=== PATIENT | male | born 1975 | race African-American/Black ===

== ENCOUNTER 2017-05-22 21:46 | Inpatient (IN) | payer MEDICARE, MEDICAID ==
[~2017-05-22] VITALS: Ht 182.9 cm; Wt 82.9 kg
[~2017-05-22 21:46] MED LIST: CALC.25 PO; ELIP667T PO; HYDR-2768 PO
[2017-05-22] MEDS ORDERED: SODIUM CHLORIDE 0.9% FLUSH 10 ML FLUSH IV FLUSH PRN (22:00)
[2017-05-22] MEDS ORDERED: ONDANSETRON HCL 4 MG/2 ML VIAL IVP ONE (22:00)
[2017-05-22] MEDS: SODIUM CHLOR 0.9% 1000 ML INJ 1,000 ML IV SCH ×2 (22:02→22:08)
[2017-05-22 22:08] VITALS: BP 123/87; PULSE 78; RESP 18; TEMP 97.8; O2SAT 97
[2017-05-22 22:11] VITALS: BP 138/78; PULSE 86; RESP 18; O2SAT 98
--- NOTE | 2017-05-22 22:12 | PD ---
HPI Chief Complaint: Medical Clearance Time Seen by Provider: 21:54 Travel History International Travel<30 days: No Contact w/Intl Traveler<30days: No History of Present Illness HPI Patient is a 42-year-old male that presented to the emergency department via EMS for evaluation after being found in the road passed out. Patient states that he was "turned up" tonight for his birthday. He reports drinking alcohol and smoking marijuana since 5 PM, specifically patient has been taking Fleischmanns vodka. Patient appears intoxicated, history is obtained from civil transportation engineer. Patient does not have any complaints at this time. He is actively vomiting in the emergency department. He denies abdominal pain, chest pain, fevers, headache, head injury. Again patient is a poor historian at this time due to acute intoxication. [facility] Past Medical History Diminished Hearing: No Hypertension: Yes Medical other: Yes (Hypocalcemia) Seizures: Yes (LAST ONE CHILDHOOD) Thyroid Disease: Yes ("DOESN'T WORK RIGHT") Past Surgical History Surgical History: No Previous Surgery Social History Alcohol Use: Yes Tobacco Use: Yes (1/2PPD) Substance Use: No Allergies-Medications (Allergen,Severity, Reaction): Coded Allergies: No Known Allergies (Verified , 06/22/09) Reported Meds & Prescriptions Reported Meds & Active Scripts Active Reported Hctz (Hydrochlorothiazide) 25 Mg Tab 25 Mg PO Q6 Phoslo (Calcium Acetate) 667 Mg Cap 667 Mg PO TIDAC Rocaltrol (Calcitriol) 0.25 Mcg Cap 0.25 Mcg PO TID Review of Systems ROS Limitations: Intoxication Except as stated in HPI: all other systems reviewed are Neg Gastrointestinal: Positive: Vomiting Psychiatric: Positive: Substance Abuse Physical Exam Narrative GENERAL: Well-developed, well-nourished, intoxicated appearing -Bul[place]ian male. SKIN: Warm and dry. HEAD: Atraumatic. Normocephalic. EYES: Pupils equal and round. No scleral icterus. Moderate injection, no drainage. ENT: No nasal bleeding or discharge. Mucous membranes pink and moist. NECK: Trachea midline. No JVD. CARDIOVASCULAR: Regular rate and rhythm. RESPIRATORY: No accessory muscle use. Clear to auscultation. Breath sounds equal bilaterally. GASTROINTESTINAL: Abdomen soft, non-tender, nondistended. Hepatic and splenic margins not palpable. MUSCULOSKELETAL: Extremities without clubbing, cyanosis, or edema. No obvious deformities. NEUROLOGICAL: Awake and drowsy but arousable, oriented to self, place and date. No obvious cranial nerve deficits. Motor grossly within normal limits. Five out of 5 muscle strength in the arms and legs. Garbled speech. PSYCHIATRIC: Appropriate mood and affect; insight and judgment normal. Data Data Last Documented VS Vital Signs Date Time Temp Pulse Resp B/P (MAP) Pulse Ox O2 Delivery O2 Flow Rate FiO2 05/22/17 22:08 97.8 78 18 123/87 (99) 97 Room Air Orders Orders Complete Blood Count With Diff (05/22/17 21:54) Comprehensive Metabolic Panel (05/22/17 21:54) Lipase (05/22/17 21:54) Iv Access Insert/Monitor (05/22/17 21:54) Ecg Monitoring (05/22/17 21:54) Oximetry (05/22/17 21:54) Ondansetron Inj (Zofran Inj) (05/22/17 22:00) Sodium Chlor 0.9% 1000 Ml Inj (Ns 1000 M (05/22/17 21:54) Sodium Chloride 0.9% Flush (Ns Flush) (05/22/17 22:00) Alcohol (Ethanol) (05/22/17 21:54) Prochlorperazine Inj (Compazine Inj) (05/22/17 23:15) Chest, Single Ap (05/22/17 ) Ct Brain W/O Iv Contrast(Rout) (05/22/17 ) Potassium Chlor 20 Meq Premix (Kcl 20 Me (05/22/17 23:45) Calcium Gluconate Inj (Calcium Gluconate (05/22/17 23:45) Urinalysis - C+S If Indicated (05/22/17 23:36) Urinary Catheter Insert/Apply (05/22/17 23:36) Potassium Chlor 20 Meq Premix (Kcl 20 Me (05/22/17 23:45) Ammonia Aromatic Inhalant (Aromatic Ammo (05/22/17 23:38) Labs Laboratory Tests Test 05/22/17 22:15 White Blood Count 10.9 TH/MM3 Red Blood Count 4.71 MIL/MM3 Hemoglobin 13.5 GM/DL Hematocrit 41.0 % Mean Corpuscular Volume 87.0 FL Mean Corpuscular Hemoglobin 28.6 PG Mean Corpuscular Hemoglobin Concent 32.9 % Red Cell Distribution Width 15.6 % Platelet Count 330 TH/MM3 Mean Platelet Volume 8.1 FL Neutrophils (%) (Auto) 62.9 % Lymphocytes (%) (Auto) 32.7 % Monocytes (%) (Auto) 3.7 % Eosinophils (%) (Auto) 0.1 % Basophils (%) (Auto) 0.6 % Neutrophils # (Auto) 6.9 TH/MM3 Lymphocytes # (Auto) 3.6 TH/MM3 Monocytes # (Auto) 0.4 TH/MM3 Eosinophils # (Auto) 0.0 TH/MM3 Basophils # (Auto) 0.1 TH/MM3 CBC Comment DIFF FINAL Differential Comment Blood Urea Nitrogen 13 MG/DL Creatinine 1.46 MG/DL Random Glucose 118 MG/DL Total Protein 7.8 GM/DL Albumin 4.0 GM/DL Calcium Level 6.4 MG/DL Alkaline Phosphatase 60 U/L Aspartate Amino Transf (AST/SGOT) 21 U/L Alanine Aminotransferase (ALT/SGPT) 24 U/L Total Bilirubin 0.2 MG/DL Sodium Level 135 MEQ/L Potassium Level 2.9 MEQ/L Chloride Level 98 MEQ/L Carbon Dioxide Level 25.3 MEQ/L Anion Gap 12 MEQ/L Estimat Glomerular Filtration Rate 64 ML/MIN Protein Corrected Calcium 6.2 MG/DL Lipase 122 U/L Ethyl Alcohol Level 301 MG/DL MDM Medical Decision Making Medical Screen Exam Complete: Yes Emergency Medical Condition: Yes Interpretation(s) Laboratory Tests Test 05/22/17 22:15 White Blood Count 10.9 TH/MM3 Red Blood Count 4.71 MIL/MM3 Hemoglobin 13.5 GM/DL Hematocrit 41.0 % Mean Corpuscular Volume 87.0 FL Mean Corpuscular Hemoglobin 28.6 PG Mean Corpuscular Hemoglobin Concent 32.9 % Red Cell Distribution Width 15.6 % Platelet Count 330 TH/MM3 Mean Platelet Volume 8.1 FL Neutrophils (%) (Auto) 62.9 % Lymphocytes (%) (Auto) 32.7 % Monocytes (%) (Auto) 3.7 % Eosinophils (%) (Auto) 0.1 % Basophils (%) (Auto) 0.6 % Neutrophils # (Auto) 6.9 TH/MM3 Lymphocytes # (Auto) 3.6 TH/MM3 Monocytes # (Auto) 0.4 TH/MM3 Eosinophils # (Auto) 0.0 TH/MM3 Basophils # (Auto) 0.1 TH/MM3 CBC Comment DIFF FINAL Differential Comment Blood Urea Nitrogen 13 MG/DL Creatinine 1.46 MG/DL Random Glucose 118 MG/DL Total Protein 7.8 GM/DL Albumin 4.0 GM/DL Calcium Level 6.4 MG/DL Alkaline Phosphatase 60 U/L Aspartate Amino Transf (AST/SGOT) 21 U/L Alanine Aminotransferase (ALT/SGPT) 24 U/L Total Bilirubin 0.2 MG/DL Sodium Level 135 MEQ/L Potassium Level 2.9 MEQ/L Chloride Level 98 MEQ/L Carbon Dioxide Level 25.3 MEQ/L Anion Gap 12 MEQ/L Estimat Glomerular Filtration Rate 64 ML/MIN Protein Corrected Calcium 6.2 MG/DL Lipase 122 U/L Ethyl Alcohol Level 301 MG/DL Vital Signs Date Time Temp Pulse Resp B/P (MAP) Pulse Ox O2 Delivery O2 Flow Rate FiO2 05/22/17 22:08 97.8 78 18 123/87 (99) 97 Room Air Differential Diagnosis Intoxication versus metabolic abnormality versus substance abuse versus other Narrative Course Patient is a 42-year-old male that presented to emergency department after being found in a road, intoxicated. Patient is alert, appears intoxicated. He was vomiting on arrival. Labs ordered and pending, IV fluids, Zofran ordered. IV access established, patient placed on machine egg washer and continuous pulse oximetry. Patient's vital signs are stable. CBC is unremarkable, chemistry with a potassium of 2.9 and corrected calcium of 6.2. Replacement ordered. Patient was reassessed, his oxygen saturation was noted to be in the upper 60s. He was placed on a nonrebreather at 15 L. He was then evaluated by my attending physician as well, patient is no longer arousable or responsive. Care of patient transferred to Dr. Viveros at this time. Chelsea Carrillo May 22, 2017 22:12
[2017-05-22 22:22] LABS: AUTOMATED NEUTROPHIL # 6.9 TH/MM3 (1.8-7.7); BASOPHIL # 0.1 TH/MM3 (0-0.2); BASOPHIL % 0.6 % (0.0-2.0); EOSINOPHIL % 0.1 % (0.0-4.0); HEMOGLOBIN 13.5 GM/DL (13.0-17.0); LYMPH % 32.7 % (9.0-44.0); LYMPHOCYTE # 3.6 TH/MM3 (1.0-4.8); MEAN CORPUSCULAR HEMOGLOBIN 28.6 PG (27.0-34.0); MEAN CORPUSCULAR HGB CONC 32.9 % (32.0-36.0); MEAN PLATELET VOLUME 8.1 FL (7.0-11.0); MONO % 3.7 % (0.0-8.0); MONOCYTE # 0.4 TH/MM3 (0-0.9); NEUT % 62.9 % (16.0-70.0); PLATELET COUNT 330 TH/MM3 (150-450); RED BLOOD COUNT 4.71 MIL/MM3 (4.50-5.90); RED CELL DISTRIBUTION WIDTH 15.6 % (11.6-17.2); WHITE BLOOD COUNT 10.9 TH/MM3 (4.0-11.0)
[2017-05-22 22:50] LABS: BICARBONATE 25.3 MEQ/L (21.0-32.0); CALCIUM 6.4 MG/DL (8.5-10.1); CREATININE 1.46 MG/DL (0.60-1.30); TOTAL BILIRUBIN ADULT 0.2 MG/DL (0.2-1.0); TOTAL PROTEIN 7.8 GM/DL (6.4-8.2)
[2017-05-22 23:00] LABS: CALCIUM-PROTEIN CORRECTED 6.2 MG/DL (8.5-10.1)
[2017-05-22] MEDS ORDERED: PROCHLORPERAZINE INJ 10 MG/2 ML VIAL IV PUSH ONE (23:15)
--- NOTE | 2017-05-22 23:26 | RADRPT ---
EXAM DATE/TIME: 05/22/2017 23:15 [facility] COMPARISON: No previous studies available for comparison. INDICATIONS : Vomiting. Congestion. MEDICAL HISTORY : Unobtainable. SURGICAL HISTORY : Unobtainable. ENCOUNTER: Initial ACUITY: 1 day PAIN SCORE: Non-responsive. LOCATION: Bilateral chest FINDINGS: Portable AP view of the chest demonstrates cardiac silhouette size at the upper limits for normal. Laurence ngs are underinflated. No definite effusion, consolidation, or pneumothorax is appreciated for techni que. The bones and soft tissues demonstrate no acute finding. CONCLUSION: Cardiac silhouette size at the upper limits for normal. Otherwise, no acute finding is identified. Stanislav Hill MD on May 22, 2017 at 23:24 Board Certified Radiologist. This report was verified electronically.
[2017-05-22] MEDS ORDERED: AMMONIA AROMATIC INHALANT 0.33 ML ONE (23:38)
[2017-05-22] MEDS ORDERED: POTASSIUM CHLOR 20 MEQ PREMIX 100 ML IV SCH ×2 (23:45)
[2017-05-22] MEDS ORDERED: CALCIUM GLUCONATE INJ 1 GM in DEXTROSE 5% IN WATER 100ML INJ 100 ML IV ONE ×2 (23:45)
--- NOTE | 2017-05-22 23:57 | HHI.HP ---
HPI Service Critical Care Medicine Primary Care Physician Unknown Admission Diagnosis Diagnosis: Travel History International Travel<30 Days: No Contact w/Intl Traveler <30 Da: No Traveled to Known Affected Are: No History of Present Illness 42-year-old gentleman arrives by ambulance for alcohol and other substances intoxication. Today's the patient's birthday and he admits to drinking alcohol and smoking marijuana. Upon arrival the patient was uncontrollably vomiting which resolved with Zofran. He was initially conversive, however about an hour after arrival the patient became more and more obtunded. His labs are remarkable for an alcohol level of 300, potassium 2.9, calcium 6.8. Patient was taken to CT scan for CT of his head which shows diffuse calcifications, no acute intracranial abnormality. Chest x-ray shows cardiomegaly without acute abnormality. Patient's respirations became labored, sonorous, and the patient became less and less responsive to painful stimuli. His O2 saturation was also in the high 80s on room air, improved to 100% on 100% nonrebreather however patient wasn't able to protect his airways and was intubated by ED attending. Review of Systems ROS Unobtainable patient is sedated and intubated Past Family Social History Allergies: Coded Allergies: No Known Allergies (Verified , 06/22/09) Past Medical History Hypertension Past Surgical History Unable to obtain Reported Medications Reported Meds & Active Scripts Active Reported Hctz (Hydrochlorothiazide) 25 Mg Tab 25 Mg PO Q6 Phoslo (Calcium Acetate) 667 Mg Cap 667 Mg PO TIDAC Rocaltrol (Calcitriol) 0.25 Mcg Cap 0.25 Mcg PO TID Active Ordered Medications Current Medications Medications (Trade) Dose Ordered Sig/Swapna Route PRN Reason Start Time Stop Time Status Last Admin Dose Admin Sodium Chloride (NS Flush) 2 ml UNSCH PRN IV FLUSH FLUSH AFTER USING IV ACCESS 05/22/17 22:00 Potassium Chloride 100 ml @ 50 mls/hr Q2H IV 05/22/17 23:45 05/23/17 03:44 Potassium Chloride 100 ml @ 50 mls/hr Q2H IV 05/22/17 23:45 05/23/17 03:44 Potassium Chloride 100 ml @ 50 mls/hr Q2H PRN IV For Potassium 2.8 - 3.2 mEq/L 2/8/18 00:30 Potassium Chloride 100 ml @ 50 mls/hr Q2H PRN IV For Potassium 2.8 - 3.2 mEq/L 05/23/17 00:30 Potassium Bicarb/ Potassium Chloride (K-Lyte Cl Eff) 50 meq UNSCH PRN PO For Potassium 3.3 - 3.5 mEq/L 05/23/17 00:30 Potassium Chloride 100 ml @ 25 mls/hr UNSCH PRN IV For Potassium 3.3 - 3.5 mEq/L 05/23/17 00:30 Potassium Chloride 100 ml @ 50 mls/hr Q2H PRN IV For Potassium 3.3 - 3.5 mEq/L 05/23/17 00:30 Magnesium Sulfate 4 gm/Sodium Chloride 100 ml @ 50 mls/hr UNSCH PRN IV For Magnesium 0.9 - 1.1 mg/dL 05/23/17 00:30 Magnesium Oxide (Mag-Ox) 800 mg UNSCH PRN PO For Magnesium 1.2 - 1.6 mg/dL 05/23/17 00:30 Magnesium Sulfate 2 gm/Sodium Chloride 100 ml @ 50 mls/hr UNSCH PRN IV For Magnesium 1.2 - 1.6 mg/dL 05/23/17 00:30 Potassium Phosphate (K-Phos) 2,000 mg Q4H PRN PO For Phosphorus < 2.5 mg/dL 05/23/17 00:30 Sodium Phosphate 30 mmol/Sodium Chloride 250 ml @ 42 mls/hr UNSCH PRN IV For Phosphorus < 2.5 mg/dL 05/23/17 00:30 Potassium Phosphate (K-Phos) 2,000 mg UNSCH PRN PO/TUBE SEE LABEL COMMENTS 05/23/17 00:30 Potassium Phosphate 30 mmol/ Sodium Chloride 260 ml @ 42 mls/hr UNSCH PRN IV SEE LABEL COMMENTS 05/23/17 00:30 Sodium Chloride 1,000 ml @ 164 mls/hr Q6H6M IV 05/23/17 00:30 Sodium Chloride (NS Flush) 2 ml UNSCH PRN IV FLUSH FLUSH AFTER USING IV ACCESS 05/23/17 00:30 Sodium Chloride (NS Flush) 2 ml BID IV FLUSH 05/23/17 09:00 Acetaminophen (Tylenol) 650 mg Q6H PRN PO PAIN 1-10 AND/OR FEVER >101F 05/23/17 00:30 Famotidine (Pepcid Inj) 20 mg Q12HR IV PUSH 05/23/17 09:00 Midazolam HCl (Versed Inj) 2 mg Q1H PRN IV PUSH SEDATION 05/23/17 00:30 Artificial Tears (Tears Naturale Opth Soln) 1 drop TID EACH EYE 05/23/17 09:00 Ondansetron HCl (Zofran Inj) 4 mg Q6H PRN IV PUSH NAUSEA OR VOMITING 05/23/17 00:30 Albuterol/ Ipratropium (Duoneb Neb) 1 ampule Q6HR NEB INH 05/23/17 04:00 Albuterol/ Ipratropium (Duoneb Neb) 1 ampule Q2HR NEB PRN INH WHEEZING 05/23/17 00:30 Enoxaparin Sodium (Lovenox Inj) 40 mg Q24H SQ 05/23/17 09:00 Miscellaneous Information 1 Q361D XX 05/23/17 00:30 Chlorhexidine Gluconate (Chlorhexidine 2% Cloth) 3 pack Taper DAILY@04 TOP 05/23/17 04:00 05/19/18 03:59 Chlorhexidine Gluconate (Chlorhexidine 2% Cloth) 3 pack UNSCH PRN TOP HYGIENIC CARE 05/23/17 00:30 Senna/Docusate Sodium (Leeann-Colace) 1 tab BID PO 05/23/17 09:00 Magnesium Hydroxide (Milk Of Magnesia Liq) 30 ml Q12H PRN PO Mild constipation 05/23/17 00:30 Sennosides (Senokot) 17.2 mg Q12H PRN PO Moderate constipation 05/23/17 00:30 Bisacodyl (Dulcolax Supp) 10 mg DAILY PRN RECTAL SEVERE CONSITIPATION 05/23/17 00:30 Lactulose (Lactulose Liq) 30 ml DAILY PRN PO SEVERE CONSITIPATION 05/23/17 00:30 Chlorhexidine Gluconate (Peridex 0.12% Liq) 15 ml BID@08,20 MT 05/23/17 08:00 Propofol 100 ml @ 0 mls/hr TITRATE PRN IV SEDATION 05/23/17 00:30 UNV Multivitamins 10 ml/Thiamine HCl 100 mg/Folic Acid 1 mg/Sodium Chloride 511.2 ml @ 125 mls/hr ONCE ONCE IV 05/23/17 02:45 05/23/17 06:50 Propofol 100 ml @ 0 mls/hr TITRATE PRN IV SEDATION 05/23/17 01:15 05/23/17 01:31 Family History Unable to obtain Social History Unable to obtain Physical Exam Vital Signs Vital Signs Date Time Temp Pulse Resp B/P (MAP) Pulse Ox O2 Delivery O2 Flow Rate FiO2 05/22/17 22:08 97.8 78 18 123/87 (99) 97 Room Air Physical Exam GENERAL: Well-nourished, well-developed patient. Sedated and intubated SKIN: Warm and dry. HEAD: Normocephalic. EYES: No scleral icterus. No injection or drainage. NECK: Supple, trachea midline. No JVD or lymphadenopathy. CARDIOVASCULAR: Regular rate and rhythm without murmurs, gallops, or rubs. RESPIRATORY: Breath sounds equal bilaterally. No accessory muscle use. GASTROINTESTINAL: Abdomen soft, non-tender, nondistended. MUSCULOSKELETAL: No cyanosis, or edema. BACK: Nontender without obvious deformity. NEURO EXAM: GCS: 7 Mental Status: The patient is altered, sedated and intubated, moves all 4 extremities spontaneously and localizes the pain. Laboratory Laboratory Tests Test 05/22/17 22:15 White Blood Count 10.9 Red Blood Count 4.71 Hemoglobin 13.5 Hematocrit 41.0 Mean Corpuscular Volume 87.0 Mean Corpuscular Hemoglobin 28.6 Mean Corpuscular Hemoglobin Concent 32.9 Red Cell Distribution Width 15.6 Platelet Count 330 Mean Platelet Volume 8.1 Neutrophils (%) (Auto) 62.9 Lymphocytes (%) (Auto) 32.7 Monocytes (%) (Auto) 3.7 Eosinophils (%) (Auto) 0.1 Basophils (%) (Auto) 0.6 Neutrophils # (Auto) 6.9 Lymphocytes # (Auto) 3.6 Monocytes # (Auto) 0.4 Eosinophils # (Auto) 0.0 Basophils # (Auto) 0.1 CBC Comment DIFF FINAL Differential Comment Blood Urea Nitrogen 13 Creatinine 1.46 Random Glucose 118 Total Protein 7.8 Albumin 4.0 Calcium Level 6.4 Alkaline Phosphatase 60 Aspartate Amino Transf (AST/SGOT) 21 Alanine Aminotransferase (ALT/SGPT) 24 Total Bilirubin 0.2 Sodium Level 135 Potassium Level 2.9 Chloride Level 98 Carbon Dioxide Level 25.3 Anion Gap 12 Estimat Glomerular Filtration Rate 64 Protein Corrected Calcium 6.2 Lipase 122 Ethyl Alcohol Level 301 Result Diagram: 05/22/17221405/22/172214 Caprini VTE Risk Assessment Caprini VTE Risk Assessment: Mod/High Risk (score >= 2) Caprini Risk Assessment Model Point Value = 1 Point Value = 2 Point Value = 3 Point Value = 5 Age 41-60 Minor surgery BMI > 25 kg/m2 Swollen legs Varicose veins or History of unexplained or recurrent spontaneous Oral contraceptives or hormone replacement Sepsis (< 1 month) Serious lung disease, including pneumonia (< 1 month) Abnormal pulmonary function Acute myocardial infarction Congestive heart failure (< 1 month) History of inflammatory bowel disease Medical patient at bed rest Age 61-74 Arthroscopic surgery Major open surgery (> 45 min) Laparoscopic surgery (> 45 min) Malignancy Confined to bed (> 72 hours) Immobilizing plaster cast Central venous access Age >= 75 History of VTE Family history of VTE Factor V Leiden Prothrombin [id number] Lupus anticoagulant Anticardiolipin antibodies Elevated serum homocysteine Heparin-induced thrombocytopenia Other congenital or acquired thrombophilia Stroke (< 1 month) Elective arthroplasty Hip, pelvis, or leg fracture Acute spinal cord injury (< 1 month) Prophylaxis Regimen Total Risk Factor Score Risk Level Prophylaxis Regimen 0-1 Low Early ambulation 2 Moderate Order ONE of the following: *Sequential Compression Device (SCD) *Heparin 5000 units SQ BID 3-4 Higher Order ONE of the following medications: *Heparin 5000 units SQ TID *Enoxaparin/Lovenox 40 mg SQ daily (WT < 150 kg, CrCl > 30 mL/min) *Enoxaparin/Lovenox 30 mg SQ daily (WT < 150 kg, CrCl > 10-29 mL/min) *Enoxaparin/Lovenox 30 mg SQ BID (WT < 150 kg, CrCl > 30 mL/min) AND/OR *Sequential Compression Device (SCD) 5 or more Highest Order ONE of the following medications: *Heparin 5000 units SQ TID (Preferred with Epidurals) *Enoxaparin/Lovenox 40 mg SQ daily (WT < 150 kg, CrCl > 30 mL/min) *Enoxaparin/Lovenox 30 mg SQ daily (WT < 150 kg, CrCl > 10-29 mL/min) *Enoxaparin/Lovenox 30 mg SQ BID (WT < 150 kg, CrCl > 30 mL/min) AND *Sequential Compression Device (SCD) Assessment and Plan Assessment and Plan Respiratory failure - Intubated for airway protection - Wean when neurologically improved - CXR and ABG daily Encephalopathy - Intoxication - Supportive care - IV fluids - Thiamine folate and multivitamins Hypokalemia - Replacement per ICU protocol Hypocalcemia - IV replacement DVT GI prophylaxis - Teds SCDs - Lovenox - Pepcid Critical Care: The total critical care time was 35 minutes. Time to perform other separately billable procedures was not included in the critical care time. Chin Rodas MD May 22, 2017 23:56
[2017-05-23] VITALS (22 sets, daily range): BP systolic 93–154; BP diastolic 58–94; PULSE 67–114; RESP 18–40; TEMP 97.9–98.2; O2SAT 100
--- NOTE | 2017-05-23 00:07 | RADRPT ---
EXAM DATE/TIME: 05/22/2017 23:47 [facility] COMPARISON: No previous studies available for comparison. INDICATIONS : Altered mental status. Syncope. RADIATION DOSE: 38.40 CTDIvol (mGy) ; Patient motion MEDICAL HISTORY : Hypertension. SURGICAL HISTORY : None. ENCOUNTER: Initial ACUITY: 1 day PAIN SCALE: Non-responsive LOCATION: cranial TECHNIQUE: Multiple contiguous axial images were obtained of the head. Using automated exposure control and adj ustment of the mA and/or kV according to patient size, radiation dose was kept as low as reasonably a chievable to obtain optimal diagnostic quality images. DICOM format image data is available electro nically for review and comparison. FINDINGS: CEREBRUM: The ventricles are normal. There is severe bilateral basal ganglia calcification as well as bilateral thalamic calcification and bilateral calcification at the subcortical white matter. No midline shif t, mass lesion, hemorrhage or acute infarction. No extra-axial fluid collections are seen. POSTERIOR FOSSA: The cerebellum and brainstem demonstrate no acute finding. There is severe calcification bilaterally including near the region of the dentate nuclei. The 4th ventricle is midline. The cerebellopontine angle is unremarkable. EXTRACRANIAL: There is mild mucoperiosteal thickening in the ethmoid sinus. Otherwise, visualized sinuses are clear . SKULL: The calvaria is intact. No evidence of skull fracture. CONCLUSION: 1. No acute intracranial abnormality is identified. 2. Severe calcification within bilateral basal ganglia, bilateral thalami, areas of subcortical white matter, and bilateral cerebellum. Although nonspecific this can be seen with Fahr disease which coul d be primary genetic or secondary to multiple potential causes most commonly endocrinopathies. Stanilsav Hill MD on May 22, 2017 at 23:58 Board Certified Radiologist. This report was verified electronically.
[2017-05-23] MEDS ORDERED: POTASSIUM CHLOR 40 MEQ PREMIX 100 ML IV PRN ×2 (00:30)
[2017-05-23] MEDS ORDERED: POTASSIUM PHOSPHATE INJ 30 MMOL in SODIUM CHLOR 0.9% 250 ML INJ 250 ML IV PRN (00:30)
[2017-05-23] MEDS ORDERED: RESP: ALBUTEROL 2.5 MG/IPRATROPIUM 0.5 MG NEB (PRN) INH (00:30)
[2017-05-23] MEDS ORDERED: MAGNESIUM HYDROXIDE SUSP 30 ML CUP PO PRN (00:30)
[2017-05-23] MEDS ORDERED: LACTULOSE SYRUP 20 GM/30 ML CUP PO PRN (00:30)
[2017-05-23] MEDS ORDERED: BISACODYL 10 MG SUPP RECTAL PRN (00:30)
[2017-05-23] MEDS ORDERED: ONDANSETRON HCL 4 MG/2 ML VIAL IV PUSH PRN (00:30)
[2017-05-23] MEDS ORDERED: PROPOFOL 1000 MG/100 ML INJ 100 ML IV PRN (00:30)
[2017-05-23] MEDS ORDERED: POTASSIUM CHLOR 20 MEQ PREMIX 100 ML IV PRN ×2 (00:30)
[2017-05-23] MEDS ORDERED: MAGNESIUM OXIDE 400 MG TAB PO PRN (00:30)
[2017-05-23] MEDS ORDERED: POTASSIUM PHOSPHATE MONOBASIC 500 MG TAB PO PRN (00:30)
[2017-05-23] MEDS ORDERED: SODIUM CHLORIDE 0.9% FLUSH 10 ML FLUSH IV FLUSH PRN (00:30)
[2017-05-23] MEDS ORDERED: ACETAMINOPHEN 325 MG TAB PO PRN (00:30)
[2017-05-23] MEDS ORDERED: MISCELLANEOUS NURSING INFORMATION XX SCH (00:30)
[2017-05-23] MEDS ORDERED: MAGNESIUM SULFATE INJ 4 GM in SODIUM CHLORIDE 0.9% INJ 92 ML IV PRN (00:30)
[2017-05-23] MEDS ORDERED: SODIUM PHOSPHATE INJ 30 MMOL in SODIUM CHLOR 0.9% 250 ML INJ 240 ML IV PRN (00:30)
[2017-05-23] MEDS ORDERED: POTASSIUM PHOSPHATE MONOBASIC 500 MG TAB PO/TUBE PRN (00:30)
[2017-05-23] MEDS ORDERED: CHLORHEXIDINE GLUCONATE 2 % 1 PACK (2 CLOTHS) TOP PRN (00:30)
[2017-05-23] MEDS ORDERED: POTASSIUM CHLORIDE 25 MEQ EFFERVESCENT TAB PO PRN (00:30)
[2017-05-23] MEDS ORDERED: MIDAZOLAM HCL 2 MG/2 ML VIAL IV PUSH PRN (00:30)
[2017-05-23] MEDS ORDERED: MAGNESIUM SULFATE INJ 2 GM in SODIUM CHLORIDE 0.9% INJ 96 ML IV PRN (00:30)
[2017-05-23] MEDS ORDERED: SENNOSIDES 8.6 MG TAB PO PRN (00:30)
--- NOTE | 2017-05-23 00:30 | PD ---
Data Data Last Documented VS Vital Signs Date Time Temp Pulse Resp B/P (MAP) Pulse Ox O2 Delivery O2 Flow Rate FiO2 05/23/17 00:20 100 05/23/17 00:19 114 29 130/82 (98) 100 05/23/17 00:09 Non-Rebreather 15.00 05/22/17 22:08 97.8 Orders Orders Complete Blood Count With Diff (05/22/17 21:54) Comprehensive Metabolic Panel (05/22/17 21:54) Lipase (05/22/17 21:54) Iv Access Insert/Monitor (05/22/17 21:54) Ecg Monitoring (05/22/17 21:54) Oximetry (05/22/17 21:54) Ondansetron Inj (Zofran Inj) (05/22/17 22:00) Sodium Chlor 0.9% 1000 Ml Inj (Ns 1000 M (05/22/17 21:54) Sodium Chloride 0.9% Flush (Ns Flush) (05/22/17 22:00) Alcohol (Ethanol) (05/22/17 21:54) Prochlorperazine Inj (Compazine Inj) (05/22/17 23:15) Chest, Single Ap (05/22/17 ) Ct Brain W/O Iv Contrast(Rout) (05/22/17 ) Potassium Chlor 20 Meq Premix (Kcl 20 Me (05/22/17 23:45) Calcium Gluconate Inj (Calcium Gluconate (05/22/17 23:45) Urinalysis - C+S If Indicated (05/22/17 23:36) Urinary Catheter Insert/Apply (05/22/17 23:36) Potassium Chlor 20 Meq Premix (Kcl 20 Me (05/22/17 23:45) Ammonia Aromatic Inhalant (Aromatic Ammo (05/22/17 23:38) Admit Order (Ed Use Only) (05/23/17 00:18) Chest, Single Ap (05/23/17 ) Labs Laboratory Tests Test 05/22/17 22:15 White Blood Count 10.9 TH/MM3 Red Blood Count 4.71 MIL/MM3 Hemoglobin 13.5 GM/DL Hematocrit 41.0 % Mean Corpuscular Volume 87.0 FL Mean Corpuscular Hemoglobin 28.6 PG Mean Corpuscular Hemoglobin Concent 32.9 % Red Cell Distribution Width 15.6 % Platelet Count 330 TH/MM3 Mean Platelet Volume 8.1 FL Neutrophils (%) (Auto) 62.9 % Lymphocytes (%) (Auto) 32.7 % Monocytes (%) (Auto) 3.7 % Eosinophils (%) (Auto) 0.1 % Basophils (%) (Auto) 0.6 % Neutrophils # (Auto) 6.9 TH/MM3 Lymphocytes # (Auto) 3.6 TH/MM3 Monocytes # (Auto) 0.4 TH/MM3 Eosinophils # (Auto) 0.0 TH/MM3 Basophils # (Auto) 0.1 TH/MM3 CBC Comment DIFF FINAL Differential Comment Blood Urea Nitrogen 13 MG/DL Creatinine 1.46 MG/DL Random Glucose 118 MG/DL Total Protein 7.8 GM/DL Albumin 4.0 GM/DL Calcium Level 6.4 MG/DL Alkaline Phosphatase 60 U/L Aspartate Amino Transf (AST/SGOT) 21 U/L Alanine Aminotransferase (ALT/SGPT) 24 U/L Total Bilirubin 0.2 MG/DL Sodium Level 135 MEQ/L Potassium Level 2.9 MEQ/L Chloride Level 98 MEQ/L Carbon Dioxide Level 25.3 MEQ/L Anion Gap 12 MEQ/L Estimat Glomerular Filtration Rate 64 ML/MIN Protein Corrected Calcium 6.2 MG/DL Lipase 122 U/L Ethyl Alcohol Level 301 MG/DL MDM Supervised Visit with DENIS: Yes Narrative Course I, Dr. Viveros, have reviewed the advance practice practitioner's documentation and am in agreement, met with the patient face to face, made the diagnosis, and the medical decision making was done by me. See her note for further details. Patient arrives by ambulance for alcohol intoxication. Today's the patient's birthday and he admits to drinking alcohol and smoking marijuana. Upon arrival the patient was uncontrollably vomiting which resolved with Zofran. He was initially conversive, however about an hour after arrival the patient became more and more obtunded. His labs are remarkable for an alcohol level of 300, potassium 2.9, calcium 6.8. Patient was taken to CT scan for CT of his head which shows diffuse calcifications, no acute intracranial abnormality. Chest x- ray shows cardiomegaly without acute abnormality. Patient's respirations became labored, sonorous, and the patient became less and less responsive to painful stimuli. His O2 saturation was also in the high 80s on room air, improved to 100% on 100% nonrebreather. Patient was not adequately detecting his airway, therefore he was intubated for airway protection. He will be admitted to the ICU. Case discussed with Dr. Rodas who will admit the patient. Procedures Procedure Narrative Emergent intubation: The patient was put in optimal position for the procedure. Rapid sequence intubation was initiated by me using 20 milligrams of etomidate IV and 50 milligrams of rocuronium IV. The patient was intubated with a 8.0 Polish cuffed endotracheal tube. Tube placement was confirmed by visualization of the tube and balloon passing through the cords, capnometry and subsequent chest x-ray. Breath sounds were equal and well aerated bilaterally postintubation. No breath sounds over stomach. Patient tolerated procedure well. Diagnosis Primary Impression: Acute respiratory failure Qualified Codes: J96.00 - Acute respiratory failure, unspecified whether with hypoxia or hypercapnia Additional Impressions: Alcohol intoxication Qualified Codes: F10.921 - Alcohol use, unspecified with intoxication delirium Hypokalemia Hypocalcemia Admitting Information Admitting Physician Requests: Admit Christopher Viveros MD May 23, 2017 00:30
[2017-05-23] MEDS ORDERED: ETOMIDATE 20 MG/10 ML VIAL IV PUSH ONE (00:45)
[2017-05-23] MEDS ORDERED: ROCURONIUM INJ 50 MG/5 ML VIAL IV ONE (00:45)
--- NOTE | 2017-05-23 00:45 | RADRPT ---
EXAM DATE/TIME: 05/23/2017 00:32 [facility] COMPARISON: CHEST SINGLE AP, May 22, 2017, 23:15. INDICATIONS : Post intubation. MEDICAL HISTORY : Hypertension. SURGICAL HISTORY : None. ENCOUNTER: Initial ACUITY: 1 day PAIN SCORE: Non-responsive. LOCATION: Bilateral chest FINDINGS: Portable AP view of the chest demonstrates cardiac silhouette size at the upper limits for normal. En dotracheal tube distal tip is at the aortic knob level measuring approximately 3.4 cm from the bk . Nasogastric tube is looped in the stomach. Lungs are underinflated and there is mild airspace opaci ty in the lower lung zones bilaterally. Multiple structures overlie the patient. No pneumothorax or p leural effusion is seen. CONCLUSION: 1. Endotracheal tube in appropriate position with tip measuring 3.4 cm from the bk. 2. Underinflation with mild bibasilar opacity possibly representing atelectasis or less likely a true airspace process. Suggest attention to this at follow-up imaging. Stanislav Hill MD on May 23, 2017 at 0:41 Board Certified Radiologist. This report was verified electronically.
[2017-05-23 01:04] LABS: BILIRUBIN, URINE NEG (NEG); BLOOD, URINE NEG (NEG); GLUCOSE,URINE NEG (NEG); KETONE, URINE NEG (NEG); NITRITE,URINE NEG (NEG); SQUAMOUS EPITHELIAL CELL URINE <1 /hpf (0-5); URINE COLOR COLORLESS (YELLW/STRAW); URINE LEUKOCYTE ESTERASE NEG (NEG)
[2017-05-23] MEDS ORDERED: vitamin d PO (01:23)
[2017-05-23] MEDS: PROPOFOL 1000 MG/100 ML INJ 100 ML IV PRN ×2 (01:31→04:38)
[2017-05-23] MEDS ORDERED: CALCIUM GLUCONATE INJ 2 GM in DEXTROSE 5% IN WATER 100ML INJ 100 ML IV ONE ×2 (02:00)
[2017-05-23] MEDS ORDERED: PROPOFOL 1000 MG/100 ML IV PRN (02:00)
[2017-05-23] MEDS ORDERED: MULTIVITAMIN INJ 10 ML, THIAMINE INJ 100 MG, FOLIC ACID INJ 1 MG in SODIUM CHLOR 0.45% ... IV ONE (02:45)
[2017-05-23] MEDS: RESP: ALBUTEROL 2.5 MG/IPRATROPIUM 0.5 MG NEB (SCH) INH ×3 (03:28→16:26)
[2017-05-23] MEDS ORDERED: CHLORHEXIDINE GLUCONATE 2 % 1 PACK (2 CLOTHS) TOP SCH (04:00)
[2017-05-23] MEDS: SODIUM CHLOR 0.9% 1000 ML INJ 1,000 ML IV SCH ×3 (06:36→15:24)
[2017-05-23] MEDS ORDERED: CHLORHEXIDINE 0.12% (ORAL KIT) 15 ML CUP MT SCH (08:00)
[2017-05-23] MEDS: ARTIFICIAL TEARS OPTH SOLN 15 ML BTL EACH EYE SCH ×2 (08:35→13:00)
[2017-05-23] MEDS ORDERED: DOCUSATE SODIUM 50 MG/SENNA 8.6 MG TAB PO SCH (09:00)
[2017-05-23] MEDS ORDERED: SODIUM CHLORIDE 0.9% FLUSH 10 ML FLUSH IV FLUSH SCH (09:00)
[2017-05-23] MEDS ORDERED: FAMOTIDINE 20 MG/2 ML VIAL IV PUSH SCH (09:00)
[2017-05-23] MEDS ORDERED: ENOXAPARIN SODIUM 40 MG/0.4 ML SYRINGE SQ SCH (09:00)
--- NOTE | 2017-05-23 10:09 | HHI.CCPN ---
Subjective Remarks/Hospital Course 42-year-old gentleman arrives by ambulance for alcohol and other substances intoxication. Today's the patient's birthday and he admits to drinking alcohol and smoking marijuana. Upon arrival the patient was uncontrollably vomiting which resolved with Zofran. He was initially conversive, however about an hour after arrival the patient became more and more obtunded. His labs are remarkable for an alcohol level of 300, potassium 2.9, calcium 6.8. Patient was taken to CT scan for CT of his head which shows diffuse calcifications, no acute intracranial abnormality. Chest x-ray shows cardiomegaly without acute abnormality. Patient's respirations became labored, sonorous, and the patient became less and less responsive to painful stimuli. His O2 saturation was also in the high 80s on room air, improved to 100% on 100% nonrebreather however patient wasn't able to protect his airways and was intubated by ED attending. Subjective: 05/23: Afebrile .Patient remains intubated and sedated. CPAP trials initiated. The patient subsequently self extubated, O2 sat greater than 95%. Ashraf for clear liquid diet advancement. Objective Vital Signs Date Time Temp Pulse Resp B/P (MAP) Pulse Ox O2 Delivery O2 Flow Rate FiO2 05/23/17 08:49 100 60 05/23/17 06:00 72 05/23/17 04:00 98.1 18 95/60 (72) 05/23/17 00:09 Non-Rebreather 15.00 Intake and Output 05/23/17 05/23/17 05/24/17 08:00 16:00 00:00 Intake Total 420 ml 598 ml Output Total 2525 ml Balance -2105 ml 598 ml Result Diagram: 05/22/17 2215 05/22/17 2215 Other Results Laboratory Tests Test 05/23/17 02:00 Blood Gas Puncture Site RT RADIAL Blood Gas Patient Temperature 98.6 Blood Gas HCO3 23 mmol/L (22-26) Blood Gas Base Excess -3.0 mmol/L (-2-2) Blood Gas Oxygen Saturation 95 % (90-100) Arterial Blood pH 7.24 (7.380-7.420) Arterial Blood Partial Pressure CO2 57 mmHg (38-42) Arterial Blood Partial Pressure O2 240 mmHg (61-120) Arterial Blood Oxygen Content 18.9 Vol % (12.0-20.0) Arterial Blood Carboxyhemoglobin 2.5 % (0-4) Arterial Blood Methemoglobin 1.3 % (0-2) Blood Gas Hemoglobin 13.8 G/DL (12.0-16.0) Oxygen Delivery Device VENTILATOR Blood Gas Ventilator Setting PRVC/AC Blood Gas Inspired Oxygen 100 % Imaging Last Impressions Chest X-Ray 05/23/17 0000 Signed Impressions: Service Date/Time: May 00:32 - CONCLUSION: 1. Endotracheal tube in appropriate position with tip measuring 3.4 cm from the bk. 2. Underinflation with mild bibasilar opacity possibly representing atelectasis or less likely a true airspace process. Suggest attention to this at follow-up imaging. Stanislav Hill MD Head CT 05/22/17 0000 Signed Impressions: Service Date/Time: Monday, May 22, 2017 23:47 - CONCLUSION: 1. No acute intracranial abnormality is identified. 2. Severe calcification within bilateral basal ganglia, bilateral thalami, areas of subcortical white matter, and bilateral cerebellum. Although nonspecific this can be seen with Fahr disease which could be primary genetic or secondary to multiple potential causes most commonly endocrinopathies. Stanislav Hill MD Objective Remarks GENERAL: Well-nourished, well-developed patient. Sedated and intubated SKIN: Warm and dry. HEAD: Normocephalic. EYES: No scleral icterus. No injection or drainage. NECK: Supple, trachea midline. No JVD or lymphadenopathy. CARDIOVASCULAR: Regular rate and rhythm without murmurs, gallops, or rubs. RESPIRATORY: Breath sounds equal bilaterally. No accessory muscle use. GASTROINTESTINAL: Abdomen soft, non-tender, nondistended. MUSCULOSKELETAL: No cyanosis, or edema. BACK: Nontender without obvious deformity. NEURO EXAM: GCS: RASS -2 Mental Status: Prior to intubation moves all 4 extremities spontaneously and localizes the pain. A/P Assessment and Plan Respiratory failure - Intubated for airway protection - Wean when neurologically improved - CXR and ABG daily -Obtain sputum culture, possible aspiration on admission -P chest x-ray in a.m. Encephalopathy - Intoxication - Supportive care - IV fluids - Thiamine folate and multivitamins -Seizure precautions Hypokalemia - Replacement per ICU protocol Hypocalcemia - IV replacement DVT GI prophylaxis - Teds SCDs - Lovenox - Pepcid Critical Care: Level 3 Discussed with CHEMISTRY TECHNICIAN at bedside (Natali) Physician Lisa Helm MD May 23, 2017 10:09
[2017-05-27] MEDS ORDERED: VITA400C28 PO (10:56)
== END 2017-05-23 18:20 | disposition left against medical advice (07) | DRG 208 ==
LOC: NEPD 21:46 → NEDA 05-23 00:20 → HIMN 05-23 01:40
PROVIDERS: ADMIT Internal Medicine Critical Care Medicine; ATTEND Internal Medicine Critical Care Medicine
PROC: 0BH17EZ Insertion of Endotracheal Airway into Trachea, Via Natural or Artificial Opening (ICD-10-PCS; principal; 2017-05-23)
PROC: 5A1935Z Respiratory Ventilation, Less than 24 Consecutive Hours (ICD-10-PCS; 2017-05-23)
DX: J96.00 Acute respiratory failure, unspecified whether with hypoxia or hypercapnia (principal); G93.40 Encephalopathy, unspecified; E87.6 Hypokalemia; E83.51 Hypocalcemia; F10.129 Alcohol abuse with intoxication, unspecified; Y90.8 Blood alcohol level of 240 mg/100 ml or more; F12.90 Cannabis use, unspecified, uncomplicated; R11.10 Vomiting, unspecified; I10 Essential (primary) hypertension; I51.7 Cardiomegaly; F17.210 Nicotine dependence, cigarettes, uncomplicated; E07.9 Disorder of thyroid, unspecified
CPT/HCPCS: 31500; 36600; 70450; 71045; 80053; 80307; 81001; 82140; 82805; 83690; 84100; 84484; 85025; 87086; 87641; 94002; 94640; 94664; 96361; 96374; J0610; J1650; J2405; J3411; J3480; J7030

== ENCOUNTER 2017-07-17 08:31 | Emergency (ER) | payer MEDICARE, MEDICAID ==
[~2017-07-17] VITALS: Ht 165.1 cm; Wt 80.0 kg
[~2017-07-17 08:31] MED LIST changes: -CALC.25 PO; -ELIP667T PO; -HYDR-2768 PO; +VITA400C28 PO
[2017-07-17 08:34] VITALS: BP 151/99; PULSE 92; RESP 16; TEMP 97.7; O2SAT 100
[2017-07-17] MEDS ORDERED: htn med PO (09:11)
[2017-07-17] MEDS ORDERED: AZITHROMYCIN 250 MG TAB PO ONE (09:30)
[2017-07-17] MEDS ORDERED: LIDOCAINE HCL 1% 50 ML VIAL IM ONE (09:30)
[2017-07-17] MEDS ORDERED: cefTRIAXone 250 MG VIAL IM ONE (09:30)
[2017-07-17] MEDS ORDERED: metroNIDAZOLE 500 MG TAB PO ONE (09:30)
[2017-07-17] MEDS ORDERED: ONDANSETRON ODT 4 MG TAB PO ONE (09:30)
--- NOTE | 2017-07-17 09:38 | PD ---
HPI Chief Complaint: Complaint Time Seen by Provider: 09:14 Travel History International Travel<30 days: No Contact w/Intl Traveler<30days: No Traveled to known affect area: No History of Present Illness HPI 42-year-old male presents to the emergency department with complaint of burning on urination and penile discharge since this morning. Reports possible exposure to STD this weekend. Denies fever, vomiting, abdominal pain. Denies testicular pain, testicular swelling. Has not taken any medications or try any treatments to alleviate his symptoms. Symptoms are mild in severity. No known aggravating or relieving factors. Primary care provider is Dr. Hatfield. No known allergies. History of hypocalcemia and hypertension. Has no other medical complaints. No other modifying factors or associated signs and symptoms. PFSH Past Medical History Diminished Hearing: No Hypertension: Yes Seizures: Yes (LAST ONE CHILDHOOD) Thyroid Disease: Yes Tetanus Vaccination: < 5 Years Past Surgical History Surgical History: No Previous Surgery Social History Alcohol Use: Yes Tobacco Use: Yes (1/2PPD) Substance Use: Yes Allergies-Medications (Allergen,Severity, Reaction): Coded Allergies: No Known Allergies (Verified Adverse Reaction, Unknown, 07/17/17) Reported Meds & Prescriptions Reported Meds & Active Scripts Active Keflex (Cephalexin) 500 Mg Cap 500 Mg PO Q12H 7 Days Reported [htn med ] PO BID Vitamin D (Cholecalciferol) Unknown Strength Cap 1 Cap PO DAILY Review of Systems Except as stated in HPI: all other systems reviewed are Neg Physical Exam Narrative GENERAL: Well-nourished, well-developed black male patient, in no acute distress SKIN: Warm and dry. HEAD: Atraumatic. Normocephalic. EYES: Pupils equal and round. ENT: Mucosa pink and moist. NECK: Trachea midline. No lymphadenopathy. CARDIOVASCULAR: Regular rate. RESPIRATORY: No accessory muscle use. GASTROINTESTINAL: Abdomen soft and nondisteneded; with tenderness at the umbilicus on palpation. Hepatic and splenic margins not palpable. Bowel sounds are active 4 quadrants. GENITOURINARY: Exam done in the presence of a nurse. UnCircumcised. Testes descended bilaterally without evidence of rotation. No lesions or erythema. Milky white urethral discharge with foul odor noted. MUSCULOSKELETAL: No obvious deformities. No clubbing. No cyanosis. No edema. NEUROLOGICAL: Awake and alert. Oriented 3. No obvious cranial nerve deficits. Motor grossly within normal limits. Normal speech. Moves all extremities. 5/5 strength to all extremities. PSYCHIATRIC: Appropriate mood and affect; insight and judgment normal. Data Data Last Documented VS Vital Signs Date Time Temp Pulse Resp B/P (MAP) Pulse Ox O2 Delivery O2 Flow Rate FiO2 07/17/17 08:34 97.7 92 16 151/99 (116) 100 Orders Orders Urinalysis - C+S If Indicated (07/17/17 08:36) Gc And Chlamydia Pcr (07/17/17 08:36) Ceftriaxone Inj (Rocephin Inj) (07/17/17 09:30) Lidocaine 1% Inj (50 Ml) (Xylocaine 1% I (07/17/17 09:30) Azithromycin (Zithromax) (07/17/17 09:30) Metronidazole (Flagyl) (07/17/17 09:30) Ondansetron Odt (Zofran Odt) (07/17/17 09:30) Urine Culture (07/17/17 09:00) Ed Discharge Order (07/17/17 10:04) Labs Laboratory Tests Test 07/17/17 09:00 Urine Color YELLOW Urine Turbidity HAZY Urine pH 6.0 Urine Specific [place] 1.023 Urine Protein 30 mg/dL Urine Glucose (UA) NEG mg/dL Urine Ketones NEG mg/dL Urine Occult Blood SMALL Urine Nitrite NEG Urine Bilirubin NEG Urine Urobilinogen LESS THAN 2.0 MG/DL Urine Leukocyte Esterase LARGE Urine RBC 2 /hpf Urine WBC 135 /hpf Urine Squamous Epithelial Cells 1 /hpf Urine Bacteria RARE /hpf Urine Mucus MANY /lpf Microscopic Urinalysis Comment CULTURE INDICATED MDM Medical Decision Making Medical Screen Exam Complete: Yes Emergency Medical Condition: Yes Medical Record Reviewed: Yes Differential Diagnosis Urethritis, chlamydia, gonorrhea, trichomonas Narrative Course 42-year-old male with urethritis. Patient empirically treated with azithromycin , Rocephin, Flagyl in the ER. Zofran ordered. Urinalysis ordered. 1005: Urinalysis with signs of infection. Urine reflex to culture. Keflex prescribed for home. Inserted patient to follow-up with [facility] or [facility] for full STD screening. Instructed patient to follow up with primary care provider. Patient verbalizes understanding and agreement with treatment plan. Patient is medically cleared and stable for discharge. Discussed reasons to return to the emergency department. Patient agrees with treatment plan. The patients vital signs are stable and the patient is stable for outpatient follow-up and treatment. Patient discharged home, stable and in no acute distress. Diagnosis Primary Impression: Urethritis Additional Impression: UTI (urinary tract infection) Qualified Codes: N39.0 - Urinary tract infection, site not specified; R31.9 - Hematuria, unspecified Referrals: [facility] Primary Care Physician [facility] Dept. Patient Instructions: Chlamydia (ED), General Instructions, Gonorrhea (ED), Nonspecific Urethritis in Men (ED), Trichomoniasis (ED) Additional Instructions: Avoid sexual activity for 14 days No sexual activity with your partner/s until they have been treated and waited 14 days Inform all sexual partners within the past 3-6 months that they need to be evaluated and treated Use condoms every time you have sex Follow-up with primary care provider Follow-up at [facility] for full STD screening Return to the emergency department immediately with worsening of symptoms Med/Other Pt SpecificInfo: Prescription(s) given Scripts Cephalexin (Keflex) 500 Mg Cap 500 MG PO Q12H for Infection for 7 Days, #14 CAP 0 Refills Prov: Kelly Mahmood 07/17/17 Disposition: 01 DISCHARGE HOME Condition: Stable Kelly Mahmood Jul 17, 2017 09:38
[2017-07-17 10:00] LABS: BACTERIA, URINE RARE /hpf; BILIRUBIN, URINE NEG (NEG); BLOOD, URINE SMALL (NEG); GLUCOSE,URINE NEG (NEG); KETONE, URINE NEG (NEG); MUCUS URINE MANY /lpf (OCC); NITRITE,URINE NEG (NEG); SQUAMOUS EPITHELIAL CELL URINE 1 /hpf (0-5); URINE COLOR YELLOW (YELLW/STRAW); URINE LEUKOCYTE ESTERASE LARGE (NEG)
[2017-07-17] MEDS ORDERED: CEPH-460 PO (10:05)
== END 2017-07-17 10:10 | disposition home or self-care (01) ==
LOC: NEPK 08:31
DX: N34.2 Other urethritis (principal); I10 Essential (primary) hypertension; F17.200 Nicotine dependence, unspecified, uncomplicated
CPT/HCPCS: 81001; 87086; 87491; 87591; 96372; 99283; J0696